=== PATIENT | male | born 1990 | race Caucasian/White ===

== ENCOUNTER 2017-02-20 12:23 | Inpatient (IN) | payer SELFPAY ==
[~2017-02-20 12:23] MED LIST: ACETAMINOPHEN325 M2 PO; ALKA-SELTZER P1 EA12 PO; ANTIDEPRESSANT MED; ASPIRIN; ATIVAN1 M2 PO; B-1100 M1 PO; CAMPRAL PO; CARAFATE1 G2 PO; CARAFATE1 GM/10 M1 PO; CHLORDIAZEPOXID25 M1; CHLORDIAZEPOXID25 M1 PO; COMPAZINE10 M PO; COMPAZINE10 MG PO; CYCLOBENZAPRINE5 M1 PO; FOLIC ACID1 M1 PO; IBUPROFEN800 M1 PO; KEFLEX500 MG PO; LIBRAX CAPSULE1 EACH PO; MAALOX MAXIMUM355 M1 PO; MULTIVITAMINS1 EAC6 PO; NEURONTIN100 M1 PO; NO HOME MEDS; NORCO 5-325 TA1 EACH PO; NORCO 5/3251 TA2 PO; OLANZAPINE5 M2 PO; OMEPRAZOLE40 M2 PO; PAXIL20 M1 PO; PEPCID; PEPCID20 M1 PO; PEPCID40 M1 PO; PERCOCET 5-3251 EACH PO; PERCOCET 7.5-31 EAC1 PO; PRILOSEC OTC20 M1 PO; PRILOSEC20 MG PO; PRILOSEC40 M1 PO; PROZAC; REGLAN10 M2 PO; SEROQUEL50 M1 PO; THERAPEUTIC M1 EAC3 PO; THIAMINE HCL100 M2 PO; TRAMADOL HCL50 M2 PO; TRAZODONE HCL100 M1 PO; TUMS SMOOTHIES PO; TUMS ULTRA400 MG PO; TUMS200 MG PO; TYLENOL EXTRA500 M1 PO; VITAMIN B-1100 M3 PO; VITAMIN B-1100 M4 PO; WELLBUTRIN XL300 M3 PO; XANAX0.5 M1 PO; XANAX1 M1 PO; ZANTAC 7575 MG PO; ZANTAC150 M1 PO; ZOFRAN4 M2 PO; ZOFRAN8 M1 PO; [UNRECOGNIZED DRUG - OTHER] PO
[2017-02-20] MEDS ORDERED: PRILOSEC OTC20 M1 PO (12:32)
[2017-02-20 14:16] LABS: BASO % 0.5 % (0-2); BASO ABSOLUTE COUNT 0.1 tho/cmm (0.0-0.2); EOS % 0.1 % (0-7); HCT-HEMATOCRIT 48.9 % (36.0-53.5); HGB-HEMOGLOBIN 17.7 gm/dl (13.5-17.0); IMMATURE GRANULOCYTES ABSOLUTE 0.06 tho/cmm (0-0.03); IMMATURE GRANULOCYTES PERCENT 0.4 % (0-0.3); LYMPH % 9.6 % (20-45); LYMPH ABSOLUTE COUNT 1.6 tho/cmm (0.8-4.5); MCHC MEAN CORPUSCULAR HGB CONC 36.2 % (32.0-36.0); MCV (MEAN CELL VOLUME) 93.9 fl (82.0-96.0); MEAN PLATELET VOLUME 9.6 cmc (9.4-12.4); MONO % 4.1 % (0-12); MONOCYTE ABSOLUTE COUNT 0.7 tho/cmm (0.0-1.2); NEUTROPHIL ABSOLUTE COUNT 14.4 tho/cmm (1.6-8.0); NEUTROPHIL-AUTOMATED 14.4 tho/cmm (1.6-8.0); NEUTROPHILS % 85.3 % (40-80); PLATELET COUNT 296 tho/cmm (150-450); RED BLOOD COUNT 5.21 mil/cmm (4.40-5.70); RED CELL DISTRIBUTION WIDTH 12.8 % (12.4-16.4); WHITE BLOOD COUNT 16.9 tho/cmm (4.0-10.0)
[2017-02-20 14:30] LABS: ALB/GLOB RATIO 1.1 (0.8-2.0); ALBUMIN 4.5 g/dl (3.5-5.0); ALCOHOL (ETOH) <10 mg/dl (<10); ALKALINE PHOSPHATASE 67 U/L (33-138); ALT/SGPT 46 U/L (12-78); AMYLASE 60 U/L (20-90); ANION GAP 20 mmol/L (0-20); AST/SGOT 42 U/L (10-40); BILIRUBIN,TOTAL 0.5 mg/dl (0.0-1.5); BLOOD UREA NITROGEN 11 mg/dl (6-24); CALCIUM 9.5 mg/dl (8.5-10.5); CARBON DIOXIDE-VENOUS 23 mmol/L (22-32); CHLORIDE 104 mmol/l (96-110); CREATININE 1.19 mg/dl (0.60-1.30); GLUCOSE 123 mg/dL (70-110); LIPASE 571 U/L (73-393); POTASSIUM 3.9 mmol/L (3.7-5.1); SODIUM 143 mmol/L (135-145); eGFR VALUE FOR BLACK >90 mL/Min
[2017-02-20 16:18] LABS: URINE APPEARANCE CLEAR; URINE BILIRUBIN NEGATIVE (NEG); URINE BLOOD NEGATIVE (NEG); URINE COLOR YELLOW; URINE GLUCOSE (UA) NEGATIVE (NEG); URINE KETONE SMALL (NEG); URINE LEUKOCYTE ESTERASE POSITIVE (NEG); URINE NITRITE NEGATIVE (NEG); URINE PROTEIN SMALL (NEG)
[2017-02-20 16:25] LABS: URINE EPITHELIAL CELLS 0-1 /[HPF] (0-10); URINE RBC 0 /[HPF] (0-5); URINE WBC 0-1 /[HPF] (0-5)
--- NOTE | 2017-02-20 20:52 | NUR ---
VIRTUAL CARE NOTE: REVIEWED PLAN OF CARE WITH PT AND NEW ORDERS RECEIVED FOR GI COCKTAIL TID PRN. ALSO REVIEWED PAIN MEDICATION MANAGEMENT. PT WAS REQUESTING INCREASED DILAUDID - TOO SHORT ACTING. REVIEWED NAUSEA MANAGEMENT AND TO BE ABLE TO TRY PO MEDS INSTEAD. PT V/U. DENIES ANY OTHER QUESTIONS OR CONCERNS AT THIS TIME. ENCOURAGED FALL PRECAUTIONS AND TO NOTIFY STAFF WITH ANY NEEDS. PT V/U.
[2017-02-21 06:15] LABS: BASO % 0.3 % (0-2); EOS % 0.8 % (0-7); EOSINOPHIL ABSOLUTE COUNT 0.1 tho/cmm (0.0-0.7); HGB-HEMOGLOBIN 13.7 gm/dl (13.5-17.0); IMMATURE GRANULOCYTES ABSOLUTE 0.02 tho/cmm (0-0.03); IMMATURE GRANULOCYTES PERCENT 0.2 % (0-0.3); LYMPH % 19.3 % (20-45); LYMPH ABSOLUTE COUNT 1.7 tho/cmm (0.8-4.5); MCH (MEAN CORPUSCULAR HGB) 32.9 pg (28.0-32.0); MCHC MEAN CORPUSCULAR HGB CONC 34.3 % (32.0-36.0); MCV (MEAN CELL VOLUME) 95.9 fl (82.0-96.0); MEAN PLATELET VOLUME 9.6 cmc (9.4-12.4); MONO % 7.8 % (0-12); MONOCYTE ABSOLUTE COUNT 0.7 tho/cmm (0.0-1.2); NEUTROPHIL ABSOLUTE COUNT 6.3 tho/cmm (1.6-8.0); NEUTROPHIL-AUTOMATED 6.3 tho/cmm (1.6-8.0); NEUTROPHILS % 71.6 % (40-80); PLATELET COUNT 162 tho/cmm (150-450); RED BLOOD COUNT 4.17 mil/cmm (4.40-5.70); RED CELL DISTRIBUTION WIDTH 12.9 % (12.4-16.4); WHITE BLOOD COUNT 8.8 tho/cmm (4.0-10.0)
[2017-02-21 06:48] LABS: AMYLASE 59 U/L (20-90); ANION GAP 14 mmol/L (0-20); BLOOD UREA NITROGEN 8 mg/dl (6-24); CARBON DIOXIDE-VENOUS 27 mmol/L (22-32); CHLORIDE 104 mmol/l (96-110); CREATININE 0.87 mg/dl (0.60-1.30); GLUCOSE 107 mg/dL (70-110); POTASSIUM 3.2 mmol/L (3.7-5.1); SODIUM 142 mmol/L (135-145); eGFR VALUE FOR BLACK >90 mL/Min
[2017-02-21 06:52] LABS: LIPASE 1076 U/L (73-393)
--- NOTE | 2017-02-21 18:58 | NUR ---
VIRTUAL CARE NOTE: ASSESSMENT DEFERRED. PT. SLEEPING.
[2017-04-03] MEDS ORDERED: TRAZODONE HCL100 M1 PO (09:39)
[2017-04-21] MEDS ORDERED: BUSPIRONE HCL15 M2 PO (07:20)
[2017-04-21] MEDS ORDERED: CHLORDIAZEPOXID25 M1 PO (09:56)
[2017-04-21] MEDS ORDERED: ULTRAM50 M1 PO (10:44)
[2017-05-24] MEDS ORDERED: OMEPRAZOLE20 M3 PO (12:15)
[2017-06-18] MEDS ORDERED: CHLORDIAZEPOXID25 M1 PO (14:07)
== END 2017-02-22 08:03 | disposition left against medical advice (07) | DRG 440 ==
LOC: EDMED 12:23 → EMR2 16:57 → 5WD 19:30
PROVIDERS: Emergency Medicine; ADMIT Family Medicine
DX: K85.90 Acute pancreatitis without necrosis or infection, unspecified (principal); F32.9 Major depressive disorder, single episode, unspecified; F10.10 Alcohol abuse, uncomplicated; B19.20 Unspecified viral hepatitis C without hepatic coma; F41.9 Anxiety disorder, unspecified; F17.210 Nicotine dependence, cigarettes, uncomplicated; F12.90 Cannabis use, unspecified, uncomplicated; Z88.8 Allergy status to other drugs, medicaments and biological substances
CPT/HCPCS: C9113; G0480; J1170; J1650; J2060; J2405; J2765; J7030; Q9967

== ENCOUNTER 2017-03-04 17:38 | Emergency (ER) | payer SELFPAY ==
[2017-03-04] MEDS ORDERED: BENADRYL25 M3 PO (18:13)
[2017-04-03] MEDS ORDERED: TRAZODONE HCL100 M1 PO (09:39)
[2017-04-21] MEDS ORDERED: BUSPIRONE HCL15 M2 PO (07:20)
[2017-04-21] MEDS ORDERED: CHLORDIAZEPOXID25 M1 PO (09:56)
[2017-04-21] MEDS ORDERED: ULTRAM50 M1 PO (10:44)
[2017-05-24] MEDS ORDERED: OMEPRAZOLE20 M3 PO (12:15)
[2017-06-18] MEDS ORDERED: CHLORDIAZEPOXID25 M1 PO (14:07)
== END 2017-03-04 20:43 ==
LOC: EDMED 17:38
PROC: 2W3RX1Z Immobilization of Left Lower Leg using Splint (ICD-10-PCS; principal; 2017-03-04)
DX: S92.352A Displaced fracture of fifth metatarsal bone, left foot, initial encounter for closed fracture (principal); F17.210 Nicotine dependence, cigarettes, uncomplicated; W23.0XXA Caught, crushed, jammed, or pinched between moving objects, initial encounter; Y93.55 Activity, bike riding; Y92.410 Unspecified street and highway as the place of occurrence of the external cause

== ENCOUNTER 2017-03-06 05:06 | Inpatient (IN) | payer SELFPAY ==
[~2017-03-06 05:06] MED LIST changes: +BENADRYL25 M3 PO
[2017-03-06 05:46] LABS: BASO % 0.5 % (0-2); BASO ABSOLUTE COUNT 0.1 tho/cmm (0.0-0.2); EOS % 0.1 % (0-7); HCT-HEMATOCRIT 49.9 % (36.0-53.5); HGB-HEMOGLOBIN 17.7 gm/dl (13.5-17.0); IMMATURE GRANULOCYTES ABSOLUTE 0.04 tho/cmm (0-0.03); IMMATURE GRANULOCYTES PERCENT 0.3 % (0-0.3); LYMPH % 16.8 % (20-45); LYMPH ABSOLUTE COUNT 2.2 tho/cmm (0.8-4.5); MCH (MEAN CORPUSCULAR HGB) 33.1 pg (28.0-32.0); MCHC MEAN CORPUSCULAR HGB CONC 35.5 % (32.0-36.0); MCV (MEAN CELL VOLUME) 93.3 fl (82.0-96.0); MEAN PLATELET VOLUME 9.6 cmc (9.4-12.4); MONO % 3.7 % (0-12); MONOCYTE ABSOLUTE COUNT 0.5 tho/cmm (0.0-1.2); NEUTROPHIL ABSOLUTE COUNT 10.1 tho/cmm (1.6-8.0); NEUTROPHIL-AUTOMATED 10.1 tho/cmm (1.6-8.0); NEUTROPHILS % 78.6 % (40-80); PLATELET COUNT 405 tho/cmm (150-450); RED BLOOD COUNT 5.35 mil/cmm (4.40-5.70); RED CELL DISTRIBUTION WIDTH 12.8 % (12.4-16.4); WHITE BLOOD COUNT 12.8 tho/cmm (4.0-10.0)
[2017-03-06 05:47] LABS: PROTHROMBIN TIME 11.5 SECONDS (9.0-13.6)
[2017-03-06 05:56] LABS: ALB/GLOB RATIO 1.1 (0.8-2.0); ALBUMIN 4.5 g/dl (3.5-5.0); ALCOHOL (ETOH) 79 mg/dl (<10); ALKALINE PHOSPHATASE 75 U/L (33-138); ALT/SGPT 35 U/L (12-78); BILIRUBIN,TOTAL 0.6 mg/dl (0.0-1.5); BLOOD UREA NITROGEN 9 mg/dl (6-24); CALCIUM 9.6 mg/dl (8.5-10.5); CARBON DIOXIDE-VENOUS 21 mmol/L (22-32); CHLORIDE 99 mmol/l (96-110); CREATININE 1.12 mg/dl (0.60-1.30); GLUCOSE 145 mg/dL (70-110); LIPASE 149 U/L (73-393); SODIUM 141 mmol/L (135-145); eGFR VALUE FOR BLACK >90 mL/Min
[2017-03-06 06:15] LABS: ANION GAP 25 mmol/L (0-20); AST/SGOT 43 U/L (10-40); MAGNESIUM 1.6 mg/dl (1.8-2.6); POTASSIUM 3.6 mmol/L (3.7-5.1)
[2017-03-06 06:50] LABS: URINE BILIRUBIN NEGATIVE (NEG); URINE BLOOD NEGATIVE (NEG); URINE GLUCOSE (UA) NEGATIVE (NEG); URINE KETONE SMALL (NEG); URINE LEUKOCYTE ESTERASE NEGATIVE (NEG); URINE NITRITE NEGATIVE (NEG); URINE PROTEIN MODERATE (NEG)
[2017-03-06 06:51] LABS: URINE APPEARANCE CLEAR; URINE COLOR DARK YELLOW
[2017-03-06 06:57] LABS: URINE BACTERIA 1+; URINE EPITHELIAL CELLS 0-2 /[HPF] (0-10); URINE MUCUS 1+; URINE RBC 0-2 /[HPF] (0-5); URINE WBC 0-1 /[HPF] (0-5)
[2017-03-06] MEDS ORDERED: IBUPROFEN200 M2 PO (15:54)
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
[2017-03-07 06:12] LABS: BASO % 0.9 % (0-2); BASO ABSOLUTE COUNT 0.1 tho/cmm (0.0-0.2); EOS % 0.9 % (0-7); EOSINOPHIL ABSOLUTE COUNT 0.1 tho/cmm (0.0-0.7); HCT-HEMATOCRIT 38.5 % (36.0-53.5); HGB-HEMOGLOBIN 12.9 gm/dl (13.5-17.0); IMMATURE GRANULOCYTES ABSOLUTE 0.01 tho/cmm (0-0.03); IMMATURE GRANULOCYTES PERCENT 0.2 % (0-0.3); LYMPH % 32.3 % (20-45); LYMPH ABSOLUTE COUNT 1.9 tho/cmm (0.8-4.5); MCH (MEAN CORPUSCULAR HGB) 32.1 pg (28.0-32.0); MCV (MEAN CELL VOLUME) 95.8 fl (82.0-96.0); MEAN PLATELET VOLUME 9.3 cmc (9.4-12.4); MONO % 7.3 % (0-12); MONOCYTE ABSOLUTE COUNT 0.4 tho/cmm (0.0-1.2); NEUTROPHIL ABSOLUTE COUNT 3.4 tho/cmm (1.6-8.0); NEUTROPHIL-AUTOMATED 3.4 tho/cmm (1.6-8.0); NEUTROPHILS % 58.4 % (40-80); RED BLOOD COUNT 4.02 mil/cmm (4.40-5.70); RED CELL DISTRIBUTION WIDTH 12.8 % (12.4-16.4)
[2017-03-07 06:16] LABS: MCHC MEAN CORPUSCULAR HGB CONC 33.5 % (32.0-36.0); PLATELET COUNT 169 tho/cmm (150-450); WHITE BLOOD COUNT 5.8 tho/cmm (4.0-10.0)
[2017-03-07 06:24] LABS: ANION GAP 10 mmol/L (0-20); BLOOD UREA NITROGEN 6 mg/dl (6-24); CALCIUM 7.7 mg/dl (8.5-10.5); CARBON DIOXIDE-VENOUS 29 mmol/L (22-32); CHLORIDE 105 mmol/l (96-110); CREATININE 0.82 mg/dl (0.60-1.30); GLUCOSE 105 mg/dL (70-110); MAGNESIUM 1.7 mg/dl (1.8-2.6); POTASSIUM 3.1 mmol/L (3.7-5.1); SODIUM 141 mmol/L (135-145); eGFR VALUE FOR BLACK >90 mL/Min
[2017-03-07] MEDS ORDERED: PROTONIX40 M2 PO (12:30)
[2017-03-07] MEDS ORDERED: ULTRAM50 M1 PO (12:31)
[2017-03-07] MEDS ORDERED: BUSPIRONE HCL15 M2 PO (12:31)
[2017-03-07] MEDS ORDERED: CELEBREX200 M1 PO (12:31)
--- NOTE | 2017-03-07 13:02 | NUR ---
VIRTUAL CARE NOTE: PT DRESSED SITTING AT BEDSIDE. PT IS READY FOR DISCHARGE INSTRUCTONS. INFORMATION GIVEN TO PT, ALL QUESTONS ANSWERED TO PT, PT DENIES FURTHER QUESTIONS. INFORMED FLOOR NURSE DISCHARGE TEACHING ALL DONE.
[2017-04-03] MEDS ORDERED: TRAZODONE HCL100 M1 PO (09:39)
[2017-04-21] MEDS ORDERED: BUSPIRONE HCL15 M2 PO (07:20)
[2017-04-21] MEDS ORDERED: CHLORDIAZEPOXID25 M1 PO (09:56)
[2017-04-21] MEDS ORDERED: ULTRAM50 M1 PO (10:44)
[2017-05-24] MEDS ORDERED: OMEPRAZOLE20 M3 PO (12:15)
[2017-06-18] MEDS ORDERED: CHLORDIAZEPOXID25 M1 PO (14:07)
== END 2017-03-07 13:10 | DRG 897 ==
LOC: EDMED 05:06 → EMR2 08:29 → 5WD 14:48
PROVIDERS: Emergency Medicine; ADMIT Internal Medicine
DX: F10.230 Alcohol dependence with withdrawal, uncomplicated (principal); F32.9 Major depressive disorder, single episode, unspecified; S92.355A Nondisplaced fracture of fifth metatarsal bone, left foot, initial encounter for closed fracture; E86.0 Dehydration; D72.829 Elevated white blood cell count, unspecified; F41.9 Anxiety disorder, unspecified; F12.90 Cannabis use, unspecified, uncomplicated; Z86.19 Personal history of other infectious and parasitic diseases; K29.70 Gastritis, unspecified, without bleeding; Z72.0 Tobacco use; V28.0XXA Motorcycle driver injured in noncollision transport accident in nontraffic accident, initial encounter
CPT/HCPCS: C9113; G0480; J2060; J2270; J2405; J3411; J7030